=== PATIENT | female | born 1990 | race Asian ===

== ENCOUNTER 2017-05-09 10:41 | Emergency (ER) | payer MEDICAID ==
[~2017-05-09] VITALS: Ht 170.2 cm; Wt 53.5 kg
[2017-05-09 10:48] VITALS: BP 141/56
== END 2017-05-09 12:50 | disposition home or self-care (01) ==
LOC: ED 10:41
DX: R59.0 Localized enlarged lymph nodes (principal); J02.9 Acute pharyngitis, unspecified
CPT/HCPCS: Q0092

== ENCOUNTER 2017-05-11 16:06 | Emergency (ER) | payer MEDICAID ==
[~2017-05-11] VITALS: Ht 167.6 cm; Wt 54.0 kg
[2017-05-11 18:23] VITALS: BP 103/59
== END 2017-05-11 18:23 | disposition home or self-care (01) ==
LOC: ED 16:06
DX: N10 Acute pyelonephritis (principal); M79.1 Myalgia
CPT/HCPCS: J0696